=== PATIENT | female | born 1980 | race Caucasian/White ===

== ENCOUNTER 2020-01-20 17:28 | Emergency (ER) | payer OTHER, SELFPAY ==
[2020-01-20 17:45] VITALS: BP 118/77; PULSE 87; RESP 18; TEMP 36.7; O2SAT 99
--- NOTE | 2020-01-20 17:52 | ED.GENADULT ---
HPI - General Adult General Chief complaint: Wound/Laceration Stated complaint: right hand dog bite Time Seen by Provider: 01/20/20 17:52 Source: patient and RN notes reviewed Mode of arrival: ambulatory Limitations: no limitations History of Present Illness HPI narrative: 39-year-old female presents with complaints of dog bite to RT dorsal hand for the past 2 days. Peroxide cleaning and Neosporin without improvement. Marlene says her dog (shoots are up to date) ran teeth into right hand causing several open areas. RT dorsal hand with discomfort, swelling, and redness. Symptoms increased over the past 24 hours. RIGHT HAND is dominant hand. Denies tingling or numbness. Denies immobility. No exacerbating factors. No relieving factors. Denies altered sensation, back pain, neck pain, and suspected foreign body. Hysterectomy. Remains active. Tetanus vaccine NOT up-to-date, will update today. The patient reports she have not been diagnosed with COVID-19. The patient reports she is not waiting for the results of a COVID-19 lab test. The patient reports she do not have fever, chills, weakness, fatigue, myalgia, throat or facial swelling. The patient reports she do not have a new or worsening cough or shortness of breath. Denies chest pain. The patient reports she do not have any rhinorrhea, congestion, sore throat, nausea, vomiting, abdominal pain, and diarrhea. Tolerating po intake well. Denies recent traveling. Denies concerns for COVID-19 or exposures been home with limited outdoor exposure except for essential household needs, work, and return home. At this time, patient is not suspected of having COVID-19. Some parts of this dictation were generated by voice recognition software and may contain typographical and/or grammatical inaccuracies. Related Data Home Medications Medication Instructions Recorded Confirmed baclofen 10 mg PO TID PRN 01/20/20 01/20/20 voazgmucij-nrbcsoeynb-iqc-cod 1 cap PO BID-TID 01/20/20 01/20/20 lamotrigine 100 mg PO BID 01/20/20 01/20/20 meloxicam 15 mg PO DAILY PRN 01/20/20 01/20/20 omeprazole 40 mg PO DAILY 01/20/20 01/20/20 quetiapine 400 mg PO DAILY 01/20/20 01/20/20 sertraline 100 mg PO BID 01/20/20 01/20/20 sumatriptan succinate 100 mg PO DIRECTED 01/20/20 01/20/20 topiramate 50 mg PO DAILY 01/20/20 01/20/20 zolpidem 12.5 mg PO DAILY 01/20/20 01/20/20 Allergies Allergy/AdvReac Type Severity Reaction Status Date / Time Sulfa (Sulfonamide Allergy Itching Verified 01/20/20 18:26 Antibiotics) Review of Systems Review of Systems: Narrative: CONSTITUTIONAL: Denies fever, chills, sweats. EYES: Denies visual changes, redness, discharge. ENT: Denies rhinorrhea, congestion, sore throat, otalgia. CARDIOVASCULAR: Denies chest pain, palpitations, edema. RESPIRATORY: Denies dyspnea, wheezing, cough. GASTROINTESTINAL: Denies abdominal pain, nausea, vomiting, diarrhea. GENITOURINARY: Denies dysuria, hematuria, abnormal discharge. SKIN: Denies rash or itching. Complains of dog bite to RT dorsal hand with redness, swelling, discomfort. No drainage MUSCULOSKELETAL: Denies acute back pain, joint pain, or myalgia. NEUROLOGIC: Denies numbness or focal weakness. PSYCHIATRIC: Denies anxiety or depression. All other systems reviewed are negative, except as documented in HPI and below. [facility] Past Medical History Medical History (Updated 01/20/20 @ 18:19 by SHILPA Giordano) Acid reflux Anxiety Bipolar disorder Depression Endometriosis Hx of migraines Ovarian cyst Surgical History Surgical History (Updated 01/20/20 @ 18:19 by SHILPA Giordano) History of cholecystectomy History of exploratory laparotomy History of hysterectomy History of tonsillectomy Family History Family History (Updated 01/20/20 @ 18:20 by SHILPA Giordano) Grandparent Family history of malignant neoplasm of cervix Family history of coronary artery disease Father , Lung cancer
[2020-01-20] MEDS: TETANUS,DIPHTHERIA,AC PERTUSSIS ADULT (0.5 ML) BOOSTRIX IM (18:11)
== END 2020-01-20 18:15 | disposition home or self-care (01) ==
PROVIDERS: Emergency Provider Nurse Practitioner Family; PCP Internal Medicine
DX: S61.451A Open bite of right hand, initial encounter (principal); K21.9 Gastro-esophageal reflux disease without esophagitis; F41.9 Anxiety disorder, unspecified; F31.9 Bipolar disorder, unspecified; N80.9 Endometriosis, unspecified; Z87.891 Personal history of nicotine dependence; Z23 Encounter for immunization; W54.0XXA Bitten by dog, initial encounter
CPT/HCPCS: 90471; 90715; 99213; G0463